=== PATIENT | female | born 1945 | race Caucasian/White ===

== ENCOUNTER → 2017-08-22 | Outpatient (CLI) | payer MEDICARE, OTHER ==
[2015-02-24 09:33] VITALS: BMI 27.3
[~2017-08-22] MED LIST: ASCO-182 PO; CALC-41 PO; LEVO50TA86 PO; LUTE6TAB PO; MAGN400T36 PO; MULT-907 PO; OMEG-23 PO; VITAMIN B6 PO; ZINC50TA43 PO; [UNRECOGNIZED DRUG - OTHER] PO
[2017-08-22 13:42] LABS: PLATELET COUNT, AUTOMATED 155 K/uL (150-450)
--- NOTE | 2017-08-22 14:21 | EKG ---
FACILITY: [facility] - [place] PATIENT NAME: JOSE LANTIGUA : [id number] MR: [id number] V: [id number] EXAM DATE: ORDERING PHYSICIAN: WIL NIELSON TECHNOLOGIST: SALAS Test Reason : PREOP-BLADDER Blood Pressure : / mmHG Vent. Rate : 066 BPM Atrial Rate : 066 BPM P-R Int : 178 ms QRS Dur : 078 ms QT Int : 394 ms P-R-T Axes : -05 043 048 degrees QTc Int : 413 ms Normal sinus rhythm Septal infarct , age undetermined Abnormal ECG No previous ECGs available Confirmed by MIRACLE MEDINA ([id number]) on 08/23/2017 6:27:58 AM Referred By: NAGA Confirmed By:MIRACLE MEDINA
--- NOTE | 2017-08-22 14:38 | RADIOLOGY IMAGING REPORT ---
FACILITY: [facility] - [place] PATIENT NAME: Paresh Monroy : 1945 MR: [id number] V: [id number] EXAM DATE: ORDERING PHYSICIAN: WIL NIELSON TECHNOLOGIST: Location: [facility] [place] Patient: Paresh Monroy : 1945 Visit/Account:[id number] Date of Sevice: 08/22/2017 2 VIEWS CHEST INDICATION: Preop evaluation for atrophic vaginitis and urinary incontinence. COMPARISON: None available FINDINGS: Cardiomediastinal silhouette and pulmonary vessels within normal limits. There is no focal infiltrate or lobar consolidation. There is no pneumothorax or pleural effusion. No nodule. Upper abdomen is unremarkable. No acute bony abnormality. IMPRESSION: 1. No acute cardiopulmonary process. Report Dictated By: Matheus Solares at 08/22/2017 2:32 PM Report E-Signed By: Matheus Solares at 08/22/2017 2:34 PM WSN:[id number]
== END ==
LOC: RAD 13:12
PROVIDERS: ATTEND Family Medicine
DX: Z01.818 Encounter for other preprocedural examination (principal); N95.2 Postmenopausal atrophic vaginitis; R32 Unspecified urinary incontinence; R06.00 Dyspnea, unspecified; R94.31 Abnormal electrocardiogram [ECG] [EKG]
CPT/HCPCS: 36415; 71046; 85025; 93005

== ENCOUNTER → 2017-08-27 | Outpatient (CLI) | payer MEDICARE, OTHER ==
[2015-02-24 09:33] VITALS: BMI 27.3
--- NOTE | 2017-08-27 11:51 | EKG ---
FAC[place] [facility] [place] PATIENT NAME: JOSE LANTIGUA : [id number] MR: [id number] V: [id number] EXAM DATE: ORDERING PHYSICIAN: WIL NIELSNO TECHNOLOGIST: JACLYN Vaz Reason : ABNORMAL EKG Blood Pressure : / mmHG Vent. Rate : 065 BPM Atrial Rate : 065 BPM P-R Int : 176 ms QRS Dur : 076 ms QT Int : 408 ms P-R-T Axes : 053 055 063 degrees QTc Int : 424 ms Normal sinus rhythm Septal infarct (cited on or before 22-AUG-2017) Abnormal ECG When compared with ECG of 22-AUG-2017 14:08, No significant change was found Confirmed by FLAKITA DE LA GARZA ([id number]) on 08/27/2017 4:12:37 PM Referred By: NAGA Confirmed By:FLAKITA DE LA GARZA
== END ==
LOC: CARD 11:34
PROVIDERS: ATTEND Family Medicine
DX: R94.31 Abnormal electrocardiogram [ECG] [EKG] (principal)
CPT/HCPCS: 93005

== ENCOUNTER → 2018-04-10 | Outpatient (CLI) | payer MEDICARE, OTHER ==
[2015-02-24 09:33] VITALS: BMI 27.3
--- NOTE | 2018-04-10 13:04 | RADIOLOGY IMAGING REPORT ---
FACILITY: [facility] PATIENT NAME: Cheryl Monroy : 1945 MR: [id number] V: [id number] EXAM DATE: ORDERING PHYSICIAN: WIL NIELSON TECHNOLOGIST: Location: [facility] - [place] Patient: Cheryl Monroy : 1945 Visit/Account:[id number] Date of Sevice: 04/10/2018 KIDNEYS EXAMINATION: Renal ultrasound. History: Renal insufficiency COMPARISON STUDIES: FINDINGS: Kidneys: Right kidney- 8.9 x 4.2 x 4.4 cm Left kidney- 9.5 x 4.6 x 5.7 cm Uniform and symmetric blood flow in each kidney by Doppler ultrasound. Hydronephrosis: none Resistive index on the right 0.56 on the left 0.57. There is a slightly lobular contour to both kidn eys Bladder: Prevoid volume 401 mL. Post void residual 34 mL. Bilateral ureteral jets are present. Abdominal aorta and IVC: Aorta and IVC are patent by Doppler ultrasound. IMPRESSION: Slightly lobular contour to both kidneys Post void bladder residual 34 mL Report Dictated By: Jonelle Hazel MD at 04/10/2018 12:58 PM Report E-Signed By: Jonelle Hazel MD at 04/10/2018 1:00 PM WSN:[email or web address]
--- NOTE | 2018-04-11 09:52 | RADIOLOGY IMAGING REPORT ---
FACILITY: [facility] PATIENT NAME: Cheryl LANTIGUA : [id number] MR: [id number] V: [id number] EXAM DATE: [id number] ORDERING PHYSICIAN: WIL NIELSON TECHNOLOGIST: Roxanna Hickey PROCEDURE:BILATERAL DIGITAL SCREENING MAMMOGRAM WITH CAD ASSISTED INTERPRETATION & 3D TOMOSYNTHESIS COMPARISON:Prior mammograms 03/22/17, 03/19/16, 03/15/15, 02/17/14, 02/12/13, 02/12/12. INDICATIONS:SCREENING FINDINGS: There are scattered areas of fibroglandular density throughout the breasts. The parenchymal pattern has remained stable allowing for difference in mammographic technique & patient positioning. There is no evidence of malignant appearing mass, malignant appearing calcifications or other secondary sign of malignancy in either breast. DIAGNOSTIC CATEGORY 1--NEGATIVE. RECOMMENDATIONS: ROUTINE MAMMOGRAM AND CLINICAL EVALUATION. IMPRESSION: BIRADS 1: Negative. No significant abnormality is seen. Dictated by: Jonelle Hazel M.D. on 04/10/2018 at 11:25 Transcribed by: HOLLI on 04/10/2018 at 13:33 Approved by: Jonelle Hazel M.D. on 04/11/2018 at 9:51 [facility]
== END ==
LOC: MAMO 01:15
PROVIDERS: ATTEND Family Medicine
DX: Z12.31 Encounter for screening mammogram for malignant neoplasm of breast (principal); N28.9 Disorder of kidney and ureter, unspecified
CPT/HCPCS: 76705; 77063; 77067